=== PATIENT | female | born 1990 | race African-American/Black ===

== ENCOUNTER 2021-11-02 17:56 | Emergency (ER) | payer MEDICARE, OTHER ==
[~2021-11-02] VITALS: Ht 172.7 cm; Wt 81.6 kg
--- NOTE | 2021-11-02 18:01 | NUR ---
[facility] 839 FRM HOME C/O LLQ PAIN, NAUSEA & DIARRHEA x 4DAYS. TO ER BED 11, HOOKED TO MONITOR, CHANGED TO HOSP GOWN, WARM BLANKET PROVIDED, PATIENT AAO x 4, BREATHING EVEN AND UNLABORED. AWAITING MD CALHOUN
--- NOTE | 2021-11-02 18:08 | NUR ---
URINE SPECIMEN COLLECTED AND SENT TO LAB.
[2021-11-02] MEDS ORDERED: ONDANSETRON HCL/PF 4 MG/2 ML VIAL ONE (18:24)
[2021-11-02] MEDS ORDERED: ACETAMINOPHEN 325 MG TABLET ONE (18:25)
[2021-11-02] MEDS ORDERED: ONDANSETRON HCL/PF 4 MG/2 ML VIAL IVP ONE (18:30)
[2021-11-02] MEDS ORDERED: IV NS 0.9% 1,000 ML BAG IV ONE ×2 (18:30→20:30)
[2021-11-02] MEDS ORDERED: KETOROLAC TROMETHAMINE INJ 30 MG/ML VIAL IV ONE (18:30)
[2021-11-02] MEDS ORDERED: ACETAMINOPHEN 325 MG TABLET PO ONE (18:30)
--- NOTE | 2021-11-02 18:41 | NUR ---
SAMANTHA, CALLED FOR MIDLINE
--- NOTE | 2021-11-02 19:00 | NUR ---
[facility] ETA 60 MINS.
[2021-11-02 19:32] LABS: ALBUMIN 2.4 g/dL (3.4-5.0); BILIRUBIN,DIRECT 0.1 mg/dL (0.0-0.2); BILIRUBIN,TOTAL 0.5 mg/dL (0.2-1.0); CALCIUM, SERUM 8.4 mg/dL (8.5-10.1); CREATININE 0.7 mg/dL (0.6-1.3); POTASSIUM 3.6 mmol/L (3.5-5.1); TOTAL PROTEIN, SERUM 8.2 g/dL (6.4-8.2)
[2021-11-02 19:36] LABS: BILIRUBIN,URINE NEGATIVE (NEGATIVE); COLOR,URINE YELLOW (YELLOW); LEUKOCYTE ESTERASE ,URINE MODERATE (NEGATIVE); NITRITE, URINE NEGATIVE (NEGATIVE); PH,URINE 6.5 (5.0-8.0); PROTEIN,URINE TRACE mg/dl (NEGATIVE); UGLUCOSE NEGATIVE (NEGATIVE)
[2021-11-02 19:46] LABS: BACTERIA,URINE 1+ /HPF (None Seen); MUCUS,URINE Few /LPF (None Seen); RBC,URINE 0-2 /HPF (0-2); SQUAMOUS EPITHELIAL CELL,UR Few /HPF (None Seen); URINE AMORPHOUS URATE Few /HPF (None Seen)
[2021-11-02] MEDS ORDERED: KETOROLAC TROMETHAMINE 15 MG/ML VIAL ONE (19:46)
[2021-11-02 20:02] LABS: BASOPHILS % (AUTO) 0.2 % (0.0-2.0); EOSINOPHILS % (AUTO) 0.3 % (0.0-6.0); HEMATOCRIT 31 % (33-45); HEMOGLOBIN 10.3 g/dL (11.5-14.8); LYMPHOCYTES # (AUTO) 1.6 K/uL (0.8-4.8); LYMPHOCYTES % (AUTO) 13.6 % (20.0-44.0); MEAN CORPUSCULAR HGB CONC 33 g/dl (31.0-36.0); MEAN CORPUSCULAR VOLUME 84 fL (82-100); MONOCYTES # (AUTO) 1.4 K/uL (0.1-1.30); NEUTROPHILS # (AUTO) 8.9 K/uL (1.8-8.9); NEUTROPHILS % (AUTO) 73.9 % (43.0-81.0); PLATELET COUNT (AUTO) 278 K/uL (150-450); RED BLOOD CELL COUNT(AUTO) 3.73 MIL/uL (4.0-5.2); WHITE BLOOD COUNT (AUTO) 12.1 K/uL (4.3-11.0)
[2021-11-02] MEDS ORDERED: CEFTRIAXONE 1GM BAG (ER ONLY) 1 GM/50 ML PIGGYBACK IV ONE (20:30)
[2021-11-02] MEDS ORDERED: CEFTRIAXONE 1GM BAG (ER ONLY) 50 ML IV ONE (20:42)
[2021-11-02] MEDS ORDERED: CEPH500C2 PO (21:22)
--- NOTE | 2021-11-02 22:00 | NUR ---
Patient discharged to home in stable condition. Written and verbal after care instructions given. Patient verbalizes understanding of instruction.
[2021-11-02] MEDS ORDERED: ACETAMINOPHEN ES 500 MG TABLET ONE (22:16)
[2021-11-02 23:38] VITALS: BP 111/70
== END 2021-11-02 22:00 | disposition home or self-care (01) ==
LOC: ER 18:46
DX: N12 Tubulo-interstitial nephritis, not specified as acute or chronic (principal); P14.0 Erb's paralysis due to birth injury; Z90.49 Acquired absence of other specified parts of digestive tract; R50.9 Fever, unspecified; Z20.822 Contact with and (suspected) exposure to COVID-19; E87.1 Hypo-osmolality and hyponatremia; E87.8 Other disorders of electrolyte and fluid balance, not elsewhere classified; R00.0 Tachycardia, unspecified; M41.9 Scoliosis, unspecified; F15.11 Other stimulant abuse, in remission; F11.11 Opioid abuse, in remission
CPT/HCPCS: 36415; 80048; 80076; 81001; 83605; 83690; 84703; 85025; 87040 ×2; 87086; 87426; 96361; 96365; 96375; 99284; J0696; J1885; J2405; J7030 ×2; C9803

== ENCOUNTER 2022-07-15 16:56 | Emergency (ER) | payer MEDICARE, OTHER ==
[~2022-07-15] VITALS: Ht 172.7 cm; Wt 90.7 kg
[~2022-07-15 16:56] MED LIST: CEPH500C2 PO
--- NOTE | 2022-07-15 17:05 | NUR ---
BIBS C/O BUG BITE ON HER BUTT, FEELING ANXIOUS, AND WANTING A REFILL ON PSYCHIATRIC MEDICATION
[2022-07-15] MEDS ORDERED: QUET50TA PO (18:19)
[2022-07-15] MEDS ORDERED: CEPH500C2 PO (18:19)
[2022-07-15 18:38] VITALS: BP 131/61
--- NOTE | 2022-07-15 18:39 | NUR ---
Patient discharged to home in stable condition. Written and verbal after care instructions given. Patient verbalizes understanding of instruction.
== END 2022-07-15 18:38 | disposition home or self-care (01) ==
LOC: ER 17:05
DX: R20.8 Other disturbances of skin sensation (principal); T63.331A Toxic effect of venom of brown recluse spider, accidental (unintentional), initial encounter; F29 Unspecified psychosis not due to a substance or known physiological condition; F31.9 Bipolar disorder, unspecified; F17.200 Nicotine dependence, unspecified, uncomplicated; Z90.49 Acquired absence of other specified parts of digestive tract; Z79.899 Other long term (current) drug therapy; Y92.89 Other specified places as the place of occurrence of the external cause